=== PATIENT | female | born 1990 | race Caucasian/White ===

== ENCOUNTER → 2016-09-08 | Outpatient (CLI) | payer OTHER ==
[~2016-09-08] MED LIST: SPIR50TA2 PO
== END | disposition home or self-care (01) ==
LOC: C.PAPS 14:03
PROVIDERS: ATTEND Obstetrics & Gynecology
DX: R87.610 Atypical squamous cells of undetermined significance on cytologic smear of cervix (ASC-US) (principal); Z01.411 Encounter for gynecological examination (general) (routine) with abnormal findings

== ENCOUNTER → 2017-03-23 | Outpatient (CLI) | payer OTHER ==
[2017-03-23 13:02] LABS: BLOOD UREA NITROGEN 11 mg/dl (7-18); BUN/CREATININE RATIO 15.7 (10-20); CALCIUM 8.6 mg/dl (8.5-10.1); CARBON DIOXIDE 26 mmol/L (21-32); CHLORIDE 108 mmol/L (98-107); CREATININE 0.68 mg/dl (0.60-1.20); GLUCOSE 92 mg/dl (70-99); SODIUM 140 mmol/L (136-145)
== END | disposition home or self-care (01) ==
LOC: C.LABBFT 09:23
PROVIDERS: ATTEND Physician Assistant Medical
DX: I10 Essential (primary) hypertension (principal)

== ENCOUNTER → 2017-09-09 | Outpatient (CLI) | payer OTHER | END | disposition home or self-care (01) | LOC: C.PAPS 10:35 | PROVIDERS: ATTEND Physician Assistant | DX: Z01.419 Encounter for gynecological examination (general) (routine) without abnormal findings (principal) ==

== ENCOUNTER 2019-01-19 07:40 | Inpatient (IN) ==
[2019-01-19] MEDS ORDERED: OXYTOCIN 30 UNITS/500 ML BAG IV PRN ×3 (08:10→23:29)
--- NOTE | 2019-01-19 08:14 | History & Physical Report ---
Date of Service January 19, 2019 Assessment & Plan (1) 38 weeks gestation of : (2) Chronic hypertension affecting : (3) Gestational diabetes requiring insulin: admit, labs, bsgs now and q2 in labor. fhts categ 1, plan pitocin. cephalic by us. could not get fingers in os--possibly too high for me to reach, i do feel edmondson was in cx however from last night. will have oncoming md examine pt. History of Present Illness Chief Complaint: planned induction. Primary Care Provider: Archie Romero MD 28yo at 38+wks for planned induction. Edmondson placed last night fell out around 3am. No labor. +FM. No martell, visual change. Has GDM, took 1/2 insulin last night. BSG for her this am 117. PNC c/b 1. GDM on insulin 2. CHTN PNL rh pos, ri, gbs neg OBH: sab x 1, x 1 (preeclampsia) GYNH: neg, needs pp pap PMH: htn PSH: hand surgery Allergies Allergy/AdvReac Type Severity Reaction Status Date / Time No Known Allergies Allergy Verified 01/06/19 11:19 Home Medications Home Medications Medication Instructions Recorded Confirmed Type Novolin N NPH U-100 Insulin 50 unit HS 01/18/19 01/18/19 History aspirin 81 mg PO DAILY 01/18/19 01/18/19 History ferrous sulfate [iron] 325 mg PO DAILY 01/18/19 01/18/19 History insulin asp prt-insulin aspart 1 sliding scale dose SUBCUT 01/18/19 01/18/19 History [Novolog Mix 70-30 U-100 Insuln] USEASDIRECTD vit no.021-hubu-lgrkh 1 tab PO DAILY 01/18/19 01/18/19 History [ Vitamin] Patient History Medical History Hypertension Gestational diabetes mellitus insulin dependent Hx of pre-eclampsia in prior , currently Delivered at 36 weeks Social History Preferred Language: Armenian Beliefs That Will Affect Care: None marital status: Current Living Situation: Spouse and Family Feels Safe at Home: Yes Smoking Status: Never smoker Second Hand Exposure: No Hx Alcohol Use: No Hx Substance Use: No Physical Exam Constitutional: WD/WN, vitals as above Respiratory: normal respiratory effort, lungs clear to auscultation Cardiovascular: Rate/Rhythm: regular rate and regular rhythm Gastrointestinal (Abdomen): gravid nt efw 7# Musculoskeletal: nt calves Genitourinary: OB Exam Abdomen: + vertex (by US) Manual OB Exam: + cervical dilation (?) and + station high OB Exam Monitor Tracing: + external FHT monitor used (130 mod variability) and + external uterine monitor used (q2) Results & Data Vital Signs (Past 12 Hours) Vital Signs Pulse BP 01/19/19 08:03 97 H 125/76
[2019-01-19 08:32] LABS: Hematocrit (blood only) 32.9 % (37-47); Hemoglobin 10.7 g/dL (12.0-16.0); Mean Corpuscular Volume 75.3 fL (80-100); Mean Platelet Volume 11.8 fL (7.4-10.4); Platelet Count 189 K/uL (130-400); RDW Coefficient of Variation 15.8 % (11.5-14.5); RDW Standard Deviation 43.3 fL (36.4-46.3); Red Blood Count 4.37 M/uL (4.2-5.4); White Blood Count 11.74 K/uL (4.8-10.8)
[2019-01-19 08:51] LABS: Alanine Aminotransferase 22 U/L (12-78); Albumin Level 2.3 gm/dl (3.4-5.0); Aspartate Aminotransferase 19 U/L (15-37); BUN Creatinine Ratio 14.9 (10-20); Blood Urea Nitrogen 7 mg/dl (7-18); Calcium 8.6 mg/dl (8.5-10.1); Carbon Dioxide 21 mmol/L (21-32); Chloride 111 mmol/L (98-107); Creatinine Clr Calc Pharmacy 218.2 ml/min; Est GFR (African American) > 150.0; Est GFR (Non-African American) 137.3; Glucose 88 mg/dl (70-99); Sodium 141 mmol/L (136-145)
[2019-01-19 08:54] LABS: Albumin Globulin Ratio 0.6 (0.9-2); Alkaline Phosphatase 167 U/L (45-117); Bilirubin,Total 0.2 mg/dl (0.2-1); Globulin 3.8 gm/dl (2.5-4.0); Total Protein 6.1 gm/dl (6.4-8.2)
[2019-01-19] MEDS: LACTATED RINGER'S 1,000 ML IV PRN ×3 (08:55→19:22)
--- NOTE | 2019-01-19 08:57 | Labor Progress Brief Note ---
Date of Service January 19, 2019 Subjective Patient presents for induction. Notes occasional contraction. +fm Assessment & Plan (1) Gestational diabetes requiring insulin: check blood sugar q2 hr with goal of 80-120 (2) Chronic hypertension affecting : stable and well controlled (3) 38 weeks gestation of : plan pit, epidural on demand, arom as indicated. anticipate . Physical Exam Constitutional: WD/WN, vitals as above Genitourinary: cx--3+/50/-3/soft/mid toco--q2-4min efm--category one Results & Data Vital Signs (Past 12 Hours) Vital Signs Temp Pulse Resp BP 01/19/19 08:03 97 H 125/76 01/19/19 07:49 36.9 C 20
[2019-01-19 09:01] LABS: Mean Corpuscular Hgb Conc 32.5 g/dL (32-36)
[2019-01-19] MEDS ORDERED: BUPIVACAINE 0.25% 30 ML VIAL ONE (12:18)
[2019-01-19] MEDS ORDERED: ePHEDrine sulfate 50 MG/ML AMP ONE (12:19)
[2019-01-19] MEDS ORDERED: fentaNYL 2MCG/ML ROPIV 1.25MG/ML 100 ML BAG EPI ONE (12:19)
[2019-01-19] MEDS ORDERED: fentaNYL citrate 100 MCG/2 ML VIAL ONE (12:19)
--- NOTE | 2019-01-19 13:21 | Anesthesiology Consultation ---
Date of Service January 19, 2019 Assessment & Plan Chart Review Chart Review: Patient NOT seen in Pre Admission Testing and Acceptable Risk for Labor Epidural Consults Requested none ASA ASA3 Proposed Anesthesia Anesthesia Type: Labor Epidural Risk / Benefits Reviewed With: PT / POA / Parent / Guardian, Accepts Plan and Informed Consent Obtained History Height/Weight Height: 5 ft 6 in Weight: 97.522 kg Allergies Allergy/AdvReac Type Severity Reaction Status Date / Time No Known Allergies Allergy Verified 01/06/19 11:19 Medications Home Medications Medication Instructions Recorded Confirmed Last Taken Novolin N NPH U-100 Insulin 45 unit HS 01/18/19 01/19/19 01/18/19 21:00 aspirin 81 mg PO DAILY 01/18/19 01/19/19 01/18/19 06:00 1 ferrous sulfate [iron] 325 mg PO DAILY 01/18/19 01/19/19 01/17/19 21:00 insulin asp prt-insulin aspart 1 sliding scale dose SUBCUT 01/18/19 01/19/19 01/18/19 19:00 [Novolog Mix 70-30 U-100 Insuln] USEASDIRECTD vit no.[id number] 1 tab PO DAILY 01/18/19 01/19/19 01/18/19 06:00 [ Vitamin] Active Medications Generic Name Dose Route Start Last Admin Trade Name Deandra PRN Reason Stop Dose Admin Lactated Ringer's 1,000 mls @ 125 mls/hr 01/19/19 08:10 01/19/19 12:52 Lr IV 01/21/19 08:09 750 mls/hr .Q8H PRN Infusion L&D Protocol Protocol Oxytocin 30 units in 500 mls @ 9 mls/hr 01/19/19 08:10 01/19/19 12:00 Pitocin IV 01/21/19 08:09 0.54 units/hr .Q24H PRN 9 mls/hr Labor Induction/Augmentation Titration Protocol 0.54 UNITS/HR NPO Date Last Intake of Fluids: 01/19/19 Time Last Intake of Fluids: 13:19 Date Last Intake of Solids: 01/19/19 Time Last Intake of Solids: 06:00 Past Medical History Medical History Hypertension Gestational diabetes mellitus insulin dependent Hx of pre-eclampsia in prior , currently Delivered at 36 weeks Exercise / Class Metabolic Activity II 4-5 Yardwork/Stairs/Walk up hill Past Family History Family History Grandfather (Maternal) Diabetes Mother Hypertension Uncle Hypertension Aunt Hypertension Grandfather (Maternal) Cancer Grandmother (Maternal) Cancer Past Surgical History Surgical History H/O hand surgery left hand surgery 2016; reconstruction surgery from a FX. Past Anesthesia History No Hx of Anesthesia Complications History of PONV No Hx of PONV and Hx of Motion Sickness Social History Smoking Status: Never smoker Do You Dip or Chew Tobacco: No Hx Alcohol Use: No Hx Substance Use: No substance use type: does not use Review of Systems Patient denies active symptoms of GERD. Patient denies history of abnormal bleeding or bleeding disorder. Patient denies active use of anticoagulants other than low dose aspirin. Patient denies numbness, tingling or weakness in lower extremities. Physical Exam Vital Signs Last Vital Signs Temp 36.9 C 01/19/19 07:49 Pulse 100 H 01/19/19 12:48 Resp 20 01/19/19 07:49 BP 126/73 01/19/19 12:48 Constitutional not obese (Gravid uterus) ENMT Mouth: no TMJ abnormality and oral opening not small Thyromental Distance: > or= 3.5 Finger Breadths Mallampati Class: III Mouth / Teeth: 1. Cap 2. Cap Neck normal visual inspection; neck extension not limited Respiratory normal respiratory effort Auscultation: lungs clear to auscultation bilaterally Cardiovascular Rate/Rhythm: regular rate and regular rhythm Heart Sounds: no murmur Neurologic moves all extremities Motor/Sensory: no sensory deficit Psychiatric Orientation: alert and oriented x 3 Testing Laboratory Results 01/19/19 08:15 01/19/19 08:15
[2019-01-19] MEDS ORDERED: DiphenhydrAMINE HCL 50 MG/ML VIAL IV PRN (13:27)
[2019-01-19] MEDS ORDERED: NALOXONE HCL 1 MG in SODIUM CHLORIDE 0.9% 1000ML 1,000 ML IV PRN (13:27)
[2019-01-19] MEDS ORDERED: NALBUPHINE HCL INJ 10 MG/ML AMP IV PRN (13:27)
[2019-01-19] MEDS ORDERED: NALOXONE HCL 0.4 MG/1 ML VIAL/CARP IV PRN (13:27)
[2019-01-19] MEDS ORDERED: ePHEDrine sulfate 50 MG/ML AMP IV PRN (13:27)
[2019-01-19] MEDS ORDERED: ONDANSETRON INJ 2 MG/ML 2 ML VIAL IV PRN (13:27)
[2019-01-19] MEDS ORDERED: fentaNYL 2MCG/ML ROPIV 1.25MG/ML 100 ML BAG EPI PRN (13:27)
--- NOTE | 2019-01-19 14:15 | Labor Progress Brief Note ---
Date of Service January 19, 2019 Subjective comfortable Assessment & Plan (1) 38 weeks gestation of : epidural and arom. continue current management. keep bladder drained. anticipate . Physical Exam Constitutional: WD/WN, vitals as above Genitourinary: cx--4/50/-2 arom--clear toco--irregular , q2-5min, pit at 9 efm--130s wtih mod variability, accels to 150s, no decels Results & Data Vital Signs (Past 12 Hours) Vital Signs Temp Pulse Resp BP Pulse Ox 01/19/19 14:09 92 H 138/82 01/19/19 14:08 113 H 98 01/19/19 14:03 107 H 126/71 99 01/19/19 13:58 106 H 99 01/19/19 13:55 108 H 122/75 01/19/19 13:53 104 H 98 01/19/19 13:52 108 H 130/80 01/19/19 13:50 105 H 128/80 01/19/19 13:48 104 H 99 01/19/19 13:47 102 H 135/83 01/19/19 13:44 97 H 131/86 01/19/19 13:43 96 H 99 01/19/19 13:41 99 H 133/80 01/19/19 13:38 101 H 99 01/19/19 13:33 102 H 99 01/19/19 13:28 99 H 99 01/19/19 12:48 100 H 126/73 01/19/19 11:47 96 H 116/76 01/19/19 10:45 107 H 129/62 01/19/19 10:08 104 H 108/63 01/19/19 09:09 100 H 123/81 01/19/19 08:03 97 H 125/76 01/19/19 07:49 36.9 C 20
--- NOTE | 2019-01-19 18:24 | Labor Progress Brief Note ---
Date of Service January 19, 2019 Subjective comfortable Assessment & Plan (1) 38 weeks gestation of : continue current management. anticipate . Physical Exam Constitutional: WD/WN, vitals as above Genitourinary: cx--6/75/-2, plet-i1-0sel efm--145 with mod variability, accels present, no decels Results & Data Vital Signs (Past 12 Hours) Vital Signs Temp Pulse Resp BP Pulse Ox 01/19/19 18:18 111 H 98 01/19/19 18:15 117 H 123/69 01/19/19 18:13 111 H 97 01/19/19 18:08 129 H 98 01/19/19 18:06 122 H 93 01/19/19 18:03 108 H 97 01/19/19 18:00 109 H 115/68 01/19/19 17:58 121 H 99 01/19/19 17:54 118 H 93 01/19/19 17:53 111 H 99 01/19/19 17:48 106 H 99 01/19/19 17:45 102 H 107/58 L 01/19/19 17:43 106 H 97 01/19/19 17:38 112 H 97 01/19/19 17:33 100 H 99 01/19/19 17:30 104 H 109/57 L 01/19/19 17:28 107 H 98 01/19/19 17:23 113 H 98 01/19/19 17:18 100 H 98 01/19/19 17:16 107 H 100/58 L 01/19/19 17:13 109 H 95 01/19/19 17:08 109 H 95 01/19/19 17:03 118 H 98 01/19/19 17:00 98 H 110/57 L 01/19/19 16:58 98 H 99 01/19/19 16:53 105 H 98 01/19/19 16:48 97 H 95 01/19/19 16:46 36.7 C 106 H 20 122/57 L 01/19/19 16:43 106 H 95 01/19/19 16:38 109 H 98 01/19/19 16:33 105 H 97 01/19/19 16:30 100 H 20 116/58 L 01/19/19 16:28 102 H 96 01/19/19 16:23 102 H 96 01/19/19 16:18 106 H 96 01/19/19 16:15 107 H 20 116/70 01/19/19 16:13 107 H 97 01/19/19 16:08 102 H 96 01/19/19 16:03 106 H 98 01/19/19 16:00 103 H 20 128/71 01/19/19 15:58 101 H 98 01/19/19 15:53 100 H 98 01/19/19 15:48 102 H 97 01/19/19 15:45 101 H 121/69 01/19/19 15:43 101 H 99 01/19/19 15:38 109 H 98 01/19/19 15:36 36.7 C 20 01/19/19 15:33 118 H 98 01/19/19 15:30 102 H 20 120/60 01/19/19 15:28 108 H 97 01/19/19 15:23 94 H 97 01/19/19 15:18 93 H 97 01/19/19 15:15 93 H 104/55 L 01/19/19 15:13 95 H 97 01/19/19 15:08 101 H 97 01/19/19 15:03 99 H 98 01/19/19 15:01 93 H 109/58 L 01/19/19 14:58 104 H 98 01/19/19 14:53 101 H 98 01/19/19 14:48 101 H 98 01/19/19 14:46 94 H 114/55 L 01/19/19 14:43 94 H 98 01/19/19 14:38 104 H 97 01/19/19 14:33 108 H 98 01/19/19 14:30 101 H 119/72 01/19/19 14:28 117 H 99 01/19/19 14:23 102 H 98 01/19/19 14:18 95 H 98 01/19/19 14:14 109 H 134/84 01/19/19 14:13 97 H 98 01/19/19 14:09 92 H 138/82 01/19/19 14:08 113 H 98 01/19/19 14:03 107 H 126/71 99 01/19/19 13:58 106 H 99 01/19/19 13:55 108 H 122/75 01/19/19 13:53 104 H 98 01/19/19 13:52 108 H 130/80 05/29/19 13:50 105 H 128/80 01/19/19 13:48 104 H 99 01/19/19 13:47 102 H 135/83 01/19/19 13:44 97 H 131/86 01/19/19 13:43 96 H 99 01/19/19 13:41 99 H 133/80 01/19/19 13:38 101 H 99 01/19/19 13:33 102 H 99 01/19/19 13:28 99 H 99 01/19/19 12:48 100 H 126/73 01/19/19 11:47 96 H 116/76 01/19/19 10:45 107 H 129/62 01/19/19 10:08 104 H 108/63 01/19/19 09:09 100 H 123/81 01/19/19 08:03 97 H 125/76 01/19/19 07:49 36.9 C 20
--- NOTE | 2019-01-19 21:44 | Labor Progress Brief Note ---
Date of Service January 19, 2019 Subjective feeling some pressure Assessment & Plan (1) 38 weeks gestation of : will attempt pushing as she is feeling some pressure. If not effective, will labor down for an hour and trial again. Physical Exam Constitutional: WD/WN, vitals as above Genitourinary: cx--c/c/0 toco--q2-3min efm--130s with mod variability, +accels, variables with some contractions Results & Data Vital Signs (Past 12 Hours) Vital Signs Temp Pulse Resp BP Pulse Ox 01/19/19 21:38 107 H 98 01/19/19 21:33 110 H 97 01/19/19 21:30 120 H 131/78 93 01/19/19 21:28 108 H 97 01/19/19 21:23 106 H 97 01/19/19 21:18 104 H 95 01/19/19 21:16 91 H 130/83 01/19/19 21:13 36.9 C 105 H 18 96 01/19/19 21:08 96 H 99 01/19/19 21:07 96 H 94 01/19/19 21:03 97 H 98 01/19/19 21:01 93 H 94 01/19/19 21:00 96 H 105/63 01/19/19 20:58 100 H 95 01/19/19 20:56 98 H 94 01/19/19 20:53 102 H 93 01/19/19 20:51 90 92 01/19/19 20:48 95 H 99 01/19/19 20:45 100 H 113/63 01/19/19 20:44 97 H 92 01/19/19 20:43 92 H 99 01/19/19 20:38 98 H 92 01/19/19 20:33 96 H 92 01/19/19 20:31 92 H 93 01/19/19 20:30 96 H 118/64 01/19/19 20:28 94 H 96 01/19/19 20:24 99 H 93 01/19/19 20:23 95 H 98 01/19/19 20:18 98 H 97 01/19/19 20:16 96 H 20 111/55 L 92 01/19/19 20:13 96 H 97 01/19/19 20:08 97 H 98 01/19/19 20:06 107 H 93 01/19/19 20:03 101 H 97 01/19/19 20:00 90 137/81 01/19/19 19:58 117 H 98 01/19/19 19:53 99 H 98 01/19/19 19:48 100 H 97 01/19/19 19:47 107 H 121/64 01/19/19 19:43 104 H 97 01/19/19 19:38 107 H 96 01/19/19 19:33 109 H 98 01/19/19 19:32 101 H 18 127/69 01/19/19 19:28 98 H 98 01/19/19 19:23 110 H 98 01/19/19 19:18 103 H 98 01/19/19 19:17 36.8 C 18 01/19/19 19:15 105 H 114/68 01/19/19 19:13 112 H 98 01/19/19 19:09 103 H 94 01/19/19 19:08 106 H 97 01/19/19 19:03 100 H 95 01/19/19 19:01 104 H 126/58 L 01/19/19 18:58 102 H 96 01/19/19 18:54 112 H 94 01/19/19 18:53 97 H 98 01/19/19 18:48 109 H 97 01/19/19 18:45 100 H 124/60 01/19/19 18:43 121 H 97 01/19/19 18:38 109 H 97 01/19/19 18:33 106 H 97 01/19/19 18:30 115 H 142/63 H 01/19/19 18:28 109 H 96 01/19/19 18:23 113 H 97 01/19/19 18:18 111 H 98 01/19/19 18:15 117 H 123/69 01/19/19 18:13 111 H 97 01/19/19 18:08 129 H 98 01/19/19 18:06 122 H 93 01/19/19 18:03 108 H 97 01/19/19 18:00 109 H 115/68 01/19/19 17:58 121 H 99 01/19/19 17:54 118 H 93 01/19/19 17:53 111 H 99 01/19/19 17:48 106 H 99 01/19/19 17:45 102 H 107/58 L 01/19/19 17:43 106 H 97 01/19/19 17:38 112 H 97 01/19/19 17:33 100 H 99 01/19/19 17:30 104 H 109/57 L 01/19/19 17:28 107 H 98 01/19/19 17:23 113 H 98 01/19/19 17:18 100 H 98 01/19/19 17:16 107 H 100/58 L 01/19/19 17:13 109 H 95 01/19/19 17:08 109 H 95 01/19/19 17:03 118 H 98 01/19/19 17:00 98 H 110/57 L 01/19/19 16:58 98 H 99 01/19/19 16:53 105 H 98 01/19/19 16:48 97 H 95 01/19/19 16:46 36.7 C 106 H 20 122/57 L 01/19/19 16:43 106 H 95 01/19/19 16:38 109 H 98 01/19/19 16:33 105 H 97 01/19/19 16:30 100 H 20 116/58 L 01/19/19 16:28 102 H 96 01/19/19 16:23 102 H 96 01/19/19 16:18 106 H 96 01/19/19 16:15 107 H 20 116/70 01/19/19 16:13 107 H 97 01/19/19 16:08 102 H 96 01/19/19 16:03 106 H 98 01/19/19 16:00 103 H 20 128/71 01/19/19 15:58 101 H 98 01/19/19 15:53 100 H 98 01/19/19 15:48 102 H 97 01/19/19 15:45 101 H 121/69 01/19/19 15:43 101 H 99 01/19/19 15:38 109 H 98 01/19/19 15:36 36.7 C 20 01/19/19 15:33 118 H 98 01/19/19 15:30 102 H 20 120/60 01/19/19 15:28 108 H 97 01/19/19 15:23 94 H 97 01/19/19 15:18 93 H 97 01/19/19 15:15 93 H 104/55 L 01/19/19 15:13 95 H 97 01/19/19 15:08 101 H 97 01/19/19 15:03 99 H 98 01/19/19 15:01 93 H 109/58 L 01/19/19 14:58 104 H 98 01/19/19 14:53 101 H 98 01/19/19 14:48 101 H 98 01/19/19 14:46 94 H 114/55 L 01/19/19 14:43 94 H 98 01/19/19 14:38 104 H 97 01/19/19 14:33 108 H 98 01/19/19 14:30 101 H 119/72 01/19/19 14:28 117 H 99 01/19/19 14:23 102 H 98 01/19/19 14:18 95 H 98 01/19/19 14:14 109 H 134/84 01/19/19 14:13 97 H 98 01/19/19 14:09 92 H 138/82 01/19/19 14:08 113 H 98 01/19/19 14:03 107 H 126/71 99 01/19/19 13:58 106 H 99 01/19/19 13:55 108 H 122/75 01/19/19 13:53 104 H 98 01/19/19 13:52 108 H 130/80 01/19/19 13:50 105 H 128/80 01/19/19 13:48 104 H 99 01/19/19 13:47 102 H 135/83 01/19/19 13:44 97 H 131/86 01/19/19 13:43 96 H 99 01/19/19 13:41 99 H 133/80 01/19/19 13:38 101 H 99 01/19/19 13:33 102 H 99 01/19/19 13:28 99 H 99 01/19/19 12:48 100 H 126/73 01/19/19 11:47 96 H 116/76 01/19/19 10:45 107 H 129/62 01/19/19 10:08 104 H 108/63
[2019-01-19] MEDS ORDERED: ACETAMINOPHEN 325 MG TAB PO PRN (22:31)
[2019-01-19] MEDS ORDERED: OXYCODONE/ACETAMINOPHEN 5mg/325mg TAB PO PRN (22:31)
--- NOTE | 2019-01-19 22:37 | Anesthesia Procedure Note ---
Date of Service January 19, 2019 Anesthesia Post Epidural Note Vital Signs Vital Signs: Temp Pulse Resp BP Pulse Ox 01/19/19 22:26 102 H 131/73 01/19/19 22:18 107 H 98 01/19/19 22:15 103 H 121/86 01/19/19 22:13 127 H 98 01/19/19 22:08 123 H 98 01/19/19 22:03 224 H 97 01/19/19 21:58 118 H 99 01/19/19 21:53 108 H 99 01/19/19 21:48 138 H 99 01/19/19 21:43 112 H 97 01/19/19 21:38 107 H 98 01/19/19 21:33 110 H 97 01/19/19 21:30 120 H 131/78 93 01/19/19 21:28 108 H 97 01/19/19 21:23 106 H 97 01/19/19 21:18 104 H 95 01/19/19 21:16 91 H 130/83 01/19/19 21:13 36.9 C 105 H 18 96 01/19/19 21:08 96 H 99 01/19/19 21:07 96 H 94 01/19/19 21:03 97 H 98 01/19/19 21:01 93 H 94 01/19/19 21:00 96 H 105/63 01/19/19 20:58 100 H 95 01/19/19 20:56 98 H 94 01/19/19 20:53 102 H 93 01/19/19 20:51 90 92 01/19/19 20:48 95 H 99 01/19/19 20:45 100 H 113/63 01/19/19 20:44 97 H 92 01/19/19 20:43 92 H 99 01/19/19 20:38 98 H 92 01/19/19 20:33 96 H 92 01/19/19 20:31 92 H 93 01/19/19 20:30 96 H 118/64 01/19/19 20:28 94 H 96 01/19/19 20:24 99 H 93 01/19/19 20:23 95 H 98 01/19/19 20:18 98 H 97 01/19/19 20:16 96 H 20 111/55 L 92 01/19/19 20:13 96 H 97 01/19/19 20:08 97 H 98 05/29/19 20:06 107 H 93 01/19/19 20:03 101 H 97 01/19/19 20:00 90 137/81 01/19/19 19:58 117 H 98 01/19/19 19:53 99 H 98 01/19/19 19:48 100 H 97 01/19/19 19:47 107 H 121/64 01/19/19 19:43 104 H 97 01/19/19 19:38 107 H 96 01/19/19 19:33 109 H 98 01/19/19 19:32 101 H 18 127/69 01/19/19 19:28 98 H 98 01/19/19 19:23 110 H 98 01/19/19 19:18 103 H 98 01/19/19 19:17 36.8 C 18 01/19/19 19:15 105 H 114/68 01/19/19 19:13 112 H 98 01/19/19 19:09 103 H 94 01/19/19 19:08 106 H 97 01/19/19 19:03 100 H 95 01/19/19 19:01 104 H 126/58 L 01/19/19 18:58 102 H 96 01/19/19 18:54 112 H 94 01/19/19 18:53 97 H 98 01/19/19 18:48 109 H 97 01/19/19 18:45 100 H 124/60 01/19/19 18:43 121 H 97 01/19/19 18:38 109 H 97 01/19/19 18:33 106 H 97 01/19/19 18:30 115 H 142/63 H 01/19/19 18:28 109 H 96 01/19/19 18:23 113 H 97 01/19/19 18:18 111 H 98 01/19/19 18:15 117 H 123/69 01/19/19 18:13 111 H 97 01/19/19 18:08 129 H 98 01/19/19 18:06 122 H 93 01/19/19 18:03 108 H 97 01/19/19 18:00 109 H 115/68 01/19/19 17:58 121 H 99 01/19/19 17:54 118 H 93 01/19/19 17:53 111 H 99 01/19/19 17:48 106 H 99 01/19/19 17:45 102 H 107/58 L 01/19/19 17:43 106 H 97 01/19/19 17:38 112 H 97 01/19/19 17:33 100 H 99 01/19/19 17:30 104 H 109/57 L 01/19/19 17:28 107 H 98 01/19/19 17:23 113 H 98 01/19/19 17:18 100 H 98 01/19/19 17:16 107 H 100/58 L 01/19/19 17:13 109 H 95 01/19/19 17:08 109 H 95 01/19/19 17:03 118 H 98 01/19/19 17:00 98 H 110/57 L 01/19/19 16:58 98 H 99 01/19/19 16:53 105 H 98 01/19/19 16:48 97 H 95 01/19/19 16:46 36.7 C 106 H 20 122/57 L 01/19/19 16:43 106 H 95 01/19/19 16:38 109 H 98 01/19/19 16:33 105 H 97 01/19/19 16:30 100 H 20 116/58 L 01/19/19 16:28 102 H 96 01/19/19 16:23 102 H 96 01/19/19 16:18 106 H 96 01/19/19 16:15 107 H 20 116/70 01/19/19 16:13 107 H 97 01/19/19 16:08 102 H 96 01/19/19 16:03 106 H 98 01/19/19 16:00 103 H 20 128/71 01/19/19 15:58 101 H 98 01/19/19 15:53 100 H 98 01/19/19 15:48 102 H 97 01/19/19 15:45 101 H 121/69 01/19/19 15:43 101 H 99 01/19/19 15:38 109 H 98 01/19/19 15:36 36.7 C 20 01/19/19 15:33 118 H 98 01/19/19 15:30 102 H 20 120/60 01/19/19 15:28 108 H 97 01/19/19 15:23 94 H 97 01/19/19 15:18 93 H 97 01/19/19 15:15 93 H 104/55 L 01/19/19 15:13 95 H 97 01/19/19 15:08 101 H 97 01/19/19 15:03 99 H 98 01/19/19 15:01 93 H 109/58 L 01/19/19 14:58 104 H 98 01/19/19 14:53 101 H 98 01/19/19 14:48 101 H 98 01/19/19 14:46 94 H 114/55 L 01/19/19 14:43 94 H 98 01/19/19 14:38 104 H 97 01/19/19 14:33 108 H 98 01/19/19 14:30 101 H 119/72 01/19/19 14:28 117 H 99 01/19/19 14:23 102 H 98 01/19/19 14:18 95 H 98 01/19/19 14:14 109 H 134/84 01/19/19 14:13 97 H 98 01/19/19 14:09 92 H 138/82 01/19/19 14:08 113 H 98 01/19/19 14:03 107 H 126/71 99 01/19/19 13:58 106 H 99 01/19/19 13:55 108 H 122/75 01/19/19 13:53 104 H 98 01/19/19 13:52 108 H 130/80 01/19/19 13:50 105 H 128/80 01/19/19 13:48 104 H 99 01/19/19 13:47 102 H 135/83 01/19/19 13:44 97 H 131/86 01/19/19 13:43 96 H 99 01/19/19 13:41 99 H 133/80 01/19/19 13:38 101 H 99 01/19/19 13:33 102 H 99 01/19/19 13:28 99 H 99 01/19/19 12:48 100 H 126/73 01/19/19 11:47 96 H 116/76 01/19/19 10:45 107 H 129/62 01/19/19 10:08 104 H 108/63 01/19/19 09:09 100 H 123/81 01/19/19 08:03 97 H 125/76 01/19/19 07:49 36.9 C 20 Notes Mental Status: alert / awake / arousable and participated in evaluation Nausea / Vomiting: adequately controlled Pain: adequately controlled Airway Patency, RR, SpO2: stable & adequate BP & HR: stable & adequate Hydration State: stable & adequate Neuraxial Anesthesia: was administered and sensory block is resolving Anesthetic Complications: no major complications apparent Epidural: Removed without complications and With tip intact Notes: Epidural site clean, dry and intact. No signs of edema, erythema or bruising at insertion site. Pt instructed to request anesthesia if she has residual lower extremity numbness or if she develops lower extremity pain or weakness, back pain or headache.
--- NOTE | 2019-01-19 23:20 | Delivery Summary ---
DATE OF OPERATION: 01/19/2019 PREOPERATIVE DIAGNOSES: 1. Intrauterine at 38+ weeks. 2. Insulin requiring gestational diabetes. 3. Chronic hypertension, well controlled in . DISCHARGE DIAGNOSIS: 1. Intrauterine at 38+ weeks. 2. Insulin requiring gestational diabetes. 3. Chronic hypertension, well controlled in . PROCEDURES: 1. Epidural anesthesia. 2. Amniotomy. 3. Pitocin augmentation. 4. Normal spontaneous vaginal delivery. 5. First degree vaginal laceration with repair. SURGEON: Brooke Welsh MD ANESTHESIA: Epidural. ESTIMATED BLOOD LOSS: 350 mL. PROCEDURE: The patient presented to labor and delivery for induction of labor after 38 weeks for well controlled, chronic hypertension. Additionally, she has insulin requiring gestational diabetes. The patient had a Bella bulb placed the night before. It fell out and when she arrived to labor and delivery, she was 3, 50%, -3, soft and mid. She underwent Pitocin augmentation then underwent an epidural anesthetic. I was able to rupture her at 4+ cm dilated. I ruptured her for copious amounts of clear fluid. The patient then progressed to complete-complete and 0 station and pushed to deliver a viable female in direct occiput posterior presentation. The head restituted towards the maternal right. The nose and mouth were bulb suctioned. There was no nuchal cord and the rest of the infant was then delivered without difficulty. The infant was placed on the maternal abdomen for drying and attention. The cord was clamped and cut at 1 minute of life. Cord blood and segment were obtained. Placenta was delivered spontaneously intact with a 3-vessel cord. Cervix, sulci, rectum, and perineum were examined and found to be intact. A small vaginal laceration was repaired with 3-0 Vicryl in a standard fashion. Hemostasis was obtained with dilute Pitocin and fundal massage. Apgars were 8 and 8. Mother and baby doing well at the end of the delivery. Blood pressures remained stable and normal throughout the labor process. Her blood sugars remained less than 100 for the vast majority of the labor. I attest to the content of the Intraoperative Record and any orders documented therein. Any exception s are noted below.
[2019-01-19] MEDS ORDERED: BISACODYL 10 MG SUPP PR PRN (23:29)
[2019-01-19] MEDS ORDERED: SUPERCREAM 0.870% 15 GM JAR EXT PRN (23:29)
[2019-01-19] MEDS ORDERED: HYDROCORTISONE ACETATE 25 MG SUPP PR PRN (23:29)
[2019-01-19] MEDS ORDERED: DIPHTHERIA/TETANUS/PERTUSSIS 0.5 ML SYR/VIAL IM ONE (23:29)
[2019-01-19] MEDS ORDERED: BENZOCAINE 20% AER SPR 82.5 GM CAN EXT PRN (23:29)
[2019-01-20] MEDS: IBUPROFEN 600 MG TAB PO PRN ×4 (03:49→18:50)
[2019-01-20 06:37] LABS: Hematocrit (blood only) 30.6 % (37-47); Hemoglobin 9.7 g/dL (12.0-16.0)
--- NOTE | 2019-01-20 06:42 | Obstetrical Progress Note ---
Date of Service <Delroy Christopher MD - Last Filed: 01/20/19 06:59> January 20, 2019 Assessment & Plan <Delroy Christopher MD - Last Filed: 01/20/19 06:59> (1) (spontaneous vaginal delivery): 28 year old day 1 s/p at 38 w and 4 d induced for maternal chronic HTN and Insulin controlled GDM * Vital Signs Reviewed and WNL * Blood type A+, GBS-, Rubella immune * Pain well controlled * Hemoglobin 12.2 prior to delivery 9.7 today * Encouraged patient to continue to ambulate and work on breast feeding today * She expresses wish to go home late tonight after 24 hours so went over all discharge instructions with patient. Subjective <Delroy Christopher MD - Last Filed: 01/20/19 06:59> Ambulation: ambulating normally Voiding: no voiding problems Passing Gas:: Yes Diet Tolerance:: regular diet Lochia:: Moderate Feeding Type:: breast feeding Current Pain Level(1-10): 1 Ms. Stanton is resting comfortably this morning, no issues or concerns currently. She tells me she would like to leave later tonight if possible. Constitutional: no fever and no chills Respiratory: no cough and no dyspnea Cardiovascular: no chest pain, no dyspnea and no calf pain Gastrointestinal: no nausea and no vomiting Physical Exam <Delroy Christopher MD - Last Filed: 01/20/19 06:59> Vital Signs (Past 24 Hours) Last Vital Signs Temp 37.0 C 01/20/19 03:45 Pulse 98 H 01/20/19 03:45 Resp 20 01/20/19 03:45 BP 124/80 01/20/19 03:45 Pulse Ox 100 01/20/19 00:35 Constitutional well developed, well nourished, cooperative and comfortable Respiratory normal respiratory effort, lungs clear to auscultation Cardiovascular Rate/Rhythm: regular rate and regular rhythm Heart Sounds: no click, no gallop, no murmur and no cardiac rub Extremities: no calf tenderness Gastrointestinal (Abdomen) Percussion/Palpation: abdomen soft; abdomen nontender Genitourinary OB Exam Abdomen: + fundal height (Uterus firm non tender fundal height 1 cm above umbilicus) <Brooke Welsh MD, FACOG - Last Filed: 01/20/19 07:05> Co-Signing Physician Notes Resident Physician Supervision Note: I interviewed and examined the patient. Discussed with Dr. Christopher and agree with findings and plan as documented in the note. Any exceptions or clarifications are listed here: Doing well. Pressures controlled. Patient desires d/c at 24 hours. If all looks well, can go. given hx of chtn, will need visit for bp check in the week. Documented By: Brooke Welsh MD, FACOG Resident Activity Tracking <Delroy Christopher MD - Last Filed: 01/20/19 06:59> Resident Involvement: Resident Care Provided Care Provided: OB Delivery
[2019-01-20] MEDS ORDERED: PRENATAL VITAMIN 1 TAB PO SCH (09:00)
[2019-01-20] MEDS: DOCUSATE SODIUM 100 MG CAP PO SCH ×2 (09:01→22:29)
[2019-01-20] MEDS ORDERED: BISACODYL 5 MG TABEC PO SCH (20:00)
== END 2019-01-20 22:50 | disposition home or self-care (01) | DRG 807 ==
LOC: 4S1 07:40 → 4S2 01-20 00:30